=== PATIENT | male | born 1945 | race African-American/Black ===

== ENCOUNTER 2020-07-18 13:47 | Emergency (ER) | payer MEDICARE ==
[~2020-07-18] VITALS: Ht 167.6 cm; Wt 95.0 kg
[~2020-07-18 13:47] MED LIST: ALLEGRA-D 1212 HOUR PO; COMBIVENT; DULERA1 AE1 IN; FLOMAX0.4 M1 PO; LORTAB5 OR; METOPROL TAR50 MG PO; NAPROSYN500 MG OR; NITROGLYCER0.4 MG PO; PENICILLN VK500 MG OR; PREVACID PO; PREVACID15 M1 PO; TRAMADOL HCL50 MG PO
[2020-07-18 16:01] LABS: IMMATURE GRANULOCYTES 2.5 % (0.0-5.0); MEAN CELL VOLUME 83.8 fL CALC (80.0-100.0); MEAN CORPUSCULAR HGB 25.4 pG CALC (26.0-32.0); MEAN CORPUSCULAR HGB CONC 30.3 g/dL CAL (32.0-36.0); NEUT# 11.75 thou/uL (1.82-7.42); RED BLOOD COUNT 3.94 mill/uL (4.70-6.10); RED CELL DISTRI WIDTH 22.9 % (11.5-15.5)
[2020-07-18 16:18] LABS: ALBUMIN 4.5 g/dL (3.2-5.0); ALKALINE PHOSPHATASE 189 u/l (38-126); ANION GAP 18 (6-22 (CALC)); BILIRUBIN, TOTAL 0.7 mg/dL (0.0-1.4); BUN 13 mg/dL (8-23); BUN/CREATININE RATIO 12 (12-20 (CALC)); CARBON DIOXIDE 24 mmol/l (22-30); CHLORIDE 101 mmol/l (95-108); CREATININE 1.1 mg/dL (0.7-1.3); GFR > 60 ML/MIN (>=60 (CALC)); GFR FOR AFR.AMER. > 60 ML/MIN (>=60 (CALC)); LIPASE 56 u/l (23-300); POTASSIUM 4.1 mmol/l (3.5-5.1); SGOT/AST 31 u/l (19-48); SODIUM 138 mmol/l (137-146); TOTAL PROTEIN 8.8 g/dL (6.3-8.2)
[2020-07-18 18:49] LABS: URINE BLOOD DIPSTICK NEGATIVE (NEGATIVE); URINE COLOR YELLOW; URINE GLUCOSE - DIPSTICK NEGATIVE (NEGATIVE); URINE KETONE TRACE mg/dL (NEGATIVE); URINE LEUK ESTERASE NEGATIVE (NEGATIVE); URINE NITRITE - DIPSTICK NEGATIVE (Negative); URINE PH 5.5 (4.5-8.0); URINE PROTEIN - DIPSTICK TRACE mg/dL (NEG-TRACE); URINE UROBILINOGEN - DIPSTICK 0.2 E.U./dL (0.2)
[2020-07-18 18:52] LABS: URINE BILIRUBIN - DIPSTICK SMALL (NEGATIVE)
[2020-07-18 19:14] VITALS: BP 108/86
== END 2020-07-18 19:27 | disposition home or self-care (01) ==
LOC: ED 13:47
DX: K59.00 Constipation, unspecified (principal); R91.8 Other nonspecific abnormal finding of lung field; F17.200 Nicotine dependence, unspecified, uncomplicated
CPT/HCPCS: Q9967